=== PATIENT | female | born 1945 | race Asian ===

== ENCOUNTER 2021-04-30 05:26 | Day surgery (SDC) | payer MEDICARE, OTHER ==
[~2021-04-30] VITALS: Ht 157.5 cm; Wt 36.4 kg
[2021-04-30] MEDS ORDERED: PROPOFOL 1% 20 ML VIAL IVP ONE (05:27)
[2021-04-30] MEDS ORDERED: MIDAZOLAM HCL 2 MG/2 ML VIAL IVP ONE (05:27)
[2021-04-30] MEDS ORDERED: FentaNYL CITRATE PF 100 MCG/2 ML VIAL IVP ONE (05:27)
[2021-04-30] MEDS ORDERED: 0.9% SODIUM CHLORIDE 10 ML VIAL IVP ONE (05:27)
[2021-04-30] MEDS ORDERED: RINGERS SOLUTION,LACTATED 1,000 ML IV ONE ×2 (05:45→05:50)
[2021-04-30 05:54] LABS: COVID AG,FIA SOURCE NASAL SWAB
[2021-04-30] MEDS ORDERED: BUPIVACAINE HCL/PF 0.5% 30 ML VIAL ONE (06:19)
[2021-04-30] MEDS ORDERED: GELATIN SPONGE,ABSORBABLE 50 MM TP ONE (06:19)
[2021-04-30] MEDS ORDERED: LIDOCAINE/PF 1% 30 ML VIAL ONE (06:19)
[2021-04-30] MEDS ORDERED: SODIUM CHLORIDE 0.9% 0 ML ONE (06:19)
[2021-04-30] MEDS ORDERED: THROMBIN, BOVINE 20000 UNITS/VIAL POWDER TP ONE (06:20)
[2021-04-30 06:30] LABS: GLUCOMETER DEV NAME(LOC) SDS.; GLUCOSE,POINT OF CARE 131 MG/DL (70-110)
[2021-04-30] MEDS ORDERED: METF-1211 PO (06:56)
[2021-04-30] MEDS ORDERED: LEVO75 PO (07:03)
[2021-04-30] MEDS ORDERED: OMEP20 PO (07:03)
[2021-04-30] MEDS ORDERED: PARO12.528 PO (07:03)
[2021-04-30] MEDS ORDERED: EMPA10TA PO ×2 (07:03→07:04)
[2021-04-30] MEDS ORDERED: ASPI-1450 PO (07:03)
[2021-04-30] MEDS ORDERED: TELM1TAB31 PO (07:03)
== END 2021-04-30 09:10 | disposition home or self-care (01) ==
LOC: SURGERY 05:26
PROVIDERS: ATTEND Podiatrist Foot & Ankle Surgery
DX: M67.471 Ganglion, right ankle and foot (principal); I10 Essential (primary) hypertension; E11.9 Type 2 diabetes mellitus without complications; E03.9 Hypothyroidism, unspecified; Z98.890 Other specified postprocedural states; Z98.51 Tubal ligation status; Z88.8 Allergy status to other drugs, medicaments and biological substances; Z79.899 Other long term (current) drug therapy
CPT/HCPCS: 28043; 82962; 87426; 88304; C9803; J0690; J2250; J2704; J3010; J3490 ×2; J7120; J7030